=== PATIENT | male | born 1955 | race Caucasian/White ===

== ENCOUNTER → 2018-07-20 08:47 | Outpatient (POV) | payer OTHER, SELFPAY | PROVIDERS: Visit Provider Dermatology | DX: Z00.00 Encounter for general adult medical examination without abnormal findings (principal) ==

== ENCOUNTER → 2019-05-04 10:28 | Outpatient (CLI) | payer OTHER, SELFPAY ==
--- NOTE | 2019-05-04 10:34 | XR_ITS ---
PROCEDURE: XR CHEST 2V CLINICAL HISTORY: BRONCHITIS COMPARISON: No exams were available for comparison FINDINGS: The cardiomediastinal silhouette and pulmonary vascularity are within normal limits. The lungs are clear without infiltrates, suspicious nodules, or pleural effusions. No acute bony abnormalities. IMPRESSION: No acute findings. Dictated by: Garrett Haines MD 05/04/2019 10:56 Signed by: <Electronically signed by Garrett Haines MD in [place]> 05/04/2019 10:56
== END ==
PROVIDERS: PCP Family Medicine; Visit Provider Family Medicine
DX: J40 Bronchitis, not specified as acute or chronic (principal)
CPT/HCPCS: 71046

== ENCOUNTER → 2019-07-05 08:21 | Outpatient (CLI) | payer OTHER, SELFPAY ==
--- NOTE | 2019-07-05 08:39 | CT_ITS ---
PROCEDURE: CT CHEST W CON CLINCAL INDICATION: SIMPLE CHRONIC BRONCHITIS Persistent cough and congestion, possible dust exposure COMPARISON: ABDPELW CT ABD PELVIS W/ CONTRAST from 01/19/2015 ABDPELW/O CT ABD PELVIS W/O CONTRAST from 04/19/2015 TECHNIQUE: IV Contrast: 75ml Optiray 350 Axial images obtained with sagittal and coronal reformats. All CT scans at the facility use one or more dose reduction, viz: automated exposure control, ma/kV adjustment per patient size (including targeted exams where dose is matched to indication, i.e. head), or iterative reconstruction technique. 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 No evidence of aortic aneurysm or dissection or central pulmonary embolus. Coronary artery calcifications are present. No mediastinal or hilar mass or adenopathy. There are atelectatic changes in the right lower lobe posteriorly and in the right lower lobe superiorly. Right hemidiaphragm is elevated. No central obstructing lesions are evident. No suspicious pulmonary nodules. No acute bony findings. IMPRESSION: Elevated right hemidiaphragm with right lower lobe atelectatic changes. Diaphragmatic paralysis or paresis could cause this finding and may be better evaluated for with fluoroscopic sniff test. Otherwise negative Dictated by: Garrett Haines MD 07/06/2019 08:48 Electronically signed by Garrett Haines MD in [place] 07/06/2019 08:48
[2019-07-05 08:47] LABS: Blood Urea Nitrogen 15 mg/dL (7-18); Creatinine,Serum 1.03 mg/dL (0.70-1.30); Estimated Glomerular Filt Rate 73 ml/min (>60); GFR (African American) 89 ML/MIN (>60)
== END ==
PROVIDERS: Visit Provider Family Medicine
DX: J41.0 Simple chronic bronchitis (principal)
CPT/HCPCS: 36415; 71260; 82565; 84520; Q9967

== ENCOUNTER → 2020-04-17 08:41 | Outpatient (CLI) | payer OTHER, SELFPAY ==
--- NOTE | 2020-04-17 08:49 | XR_ITS ---
PROCEDURE: XR CHEST 2V CLINICAL HISTORY: ATELECTASIS OF RT LUNG COMPARISON: CR CXR CHEST(2 VIEWS-NOT PORTABLE) from 01/13/2015 CR CXR CHEST(2 VIEWS-NOT PORTABLE) from 03/06/2016 DX XR CHEST 2V from 05/04/[address] CHEST W CON from 07/05/2019 FINDINGS: The cardiomediastinal silhouette and pulmonary vascularity are within normal limits. Atelectatic and/or fibrotic changes are present in the right lower lobe slightly increased compared to the previous exam of 05/04/2019. Left lung is clear. No acute bony findings. No acute bony abnormalities. IMPRESSION: Slight increase in atelectasis and/or fibrotic change in the right lung base Dictated b Garrett Haines MD 04/17/2020 15:58 Garrett Haines MD in [place] 04/17/2020 15:58
--- NOTE | 2020-04-17 08:49 | XR_ITS ---
PROCEDURE: XR SINUS MIN 3V CLINICAL INDICATION: LARYNGOSPASMS COMPARISON: No exams were available for comparison FINDINGS: There is moderate mucosal thickening of the maxillary sinuses bilaterally right greater than left with suggestion of an air-fluid level in the right maxillary sinus. The frontal and ethmoid and sphenoid sinuses are unremarkable. IMPRESSION: Bilateral maxillary sinus disease with air-fluid level on the right suggesting acute sinusitis Dictated b Garrett Haines MD 04/17/2020 15:59 Garrett Haines MD in [place] 04/17/2020 15:59
== END ==
PROVIDERS: PCP Family Medicine; Visit Provider Family Medicine
DX: J38.5 Laryngeal spasm (principal); J98.11 Atelectasis
CPT/HCPCS: 70220; 71046

== ENCOUNTER → 2020-04-19 08:39 | Outpatient (CLI) | payer OTHER, SELFPAY | PROVIDERS: PCP Family Medicine; Visit Provider Family Medicine | DX: Z20.828 Contact with and (suspected) exposure to other viral communicable diseases (principal) | CPT/HCPCS: U0003 ==

== ENCOUNTER → 2020-06-28 15:27 | Outpatient (CLI) | payer OTHER, SELFPAY ==
[2020-06-29 13:57] LABS: Covid-19 Nasal PCR Sendout Lex Not Detected
== END ==
PROVIDERS: PCP Family Medicine; Visit Provider Nurse Practitioner
DX: Z03.818 Encounter for observation for suspected exposure to other biological agents ruled out (principal)
CPT/HCPCS: U0004

== ENCOUNTER 2020-09-19 10:56 | Emergency (ER) | payer OTHER, SELFPAY ==
[2020-09-19 10:58] VITALS: BP 185/95; PULSE 75; RESP 16; TEMP 36.8; O2SAT 94; BMI 38.9
--- NOTE | 2020-09-19 11:21 | HMH.EDUTC ---
[facility] Disposition Clinical Impression: Viral syndrome, Exposure to COVID-19 virus Disposition: Home, Self-Care Condition on Discharge: Good Instructions: DI for COVID-19 (Suspected or Confirmed ), Preventing the Spread of Coronavirus Discharge Instructions Additional Instructions: Drink plenty of fluids. Take tylenol for pain or fever. Return if you begin to have difficulty breathing. Follow up with your regular doctor. GO TO THE ER FOR ANY WORSENING SYMPTOMS Referrals: Fani Hirsch MD [Primary Care Provider] - Time of Disposition: 11:27 Medical Decision Making - Medical Records Medical records reviewed: No: I reviewed the patient's medical records. - Tito Inquiry Pt receiving controlled substance: No Vital Signs: 09/19/20 10:58 09/19/20 11:35 Temperature 98.3 F 98.3 F Temperature Source Oral Oral Pulse Rate 75 Pulse Rate [Right] 75 Respiratory Rate 16 16 Blood Pressure 185/95 H Blood Pressure [Right Arm] 185/95 H Blood Pressure Mean [Right Arm] 125 02 Sat by Pulse Oximetry 94 L [facility] HPI - General Stated complaint: Cough;headache;weakness wants COVID test Time Seen by Provider: 09/19/20 11:21 Mode of Arrival: Ambulatory Source of Information: Patient Limitations: No Limitations Description of Symptoms (Recalled from Triage Doc. by RN): pt c/o HINDS x 3 days. son has tested positive for covid. pt requesting covid test HEENT Symptoms (Recalled from RN notes): No Resp Symptoms (Recalled from RN notes): No Skin Symptoms (Recalled from RN notes): No MS Symptoms (Recalled from RN notes): No Functional Status (Recalled from RN notes): wnl - History of Present Illness Provider Complaint: He states that his son currently has covid-19. His son lives with him. He states that for the past 2 days he has had a head ache, mild cough, and mild sore throat. He denies any shortness of breath. - Related Data Allergies Allergy/AdvReac Type Severity Reaction Status Date / Time No Known Allergies Allergy Unverified 01/14/18 11:21 - Worker's Comp Is this a Worker's Comp case?: No Is this an H Worker's Comp?: No Is this a [place] Worker's Comp?: No [facility] History - Hepatitis A Screen Drug use history?: No High risk sexual behaviors?: No History of sexually transmitted infection?: No Currently employed?: No Childcare worker?: No Do you have indoor plumbing?: Yes Do you have electricity?: Yes Attestation statement:: This patient has been screened for Hepatitis A risk factors. I have reviewed the patient's past medical history: Yes Other Surgeries: Yes: Other - Social History Smoking Status: Former smoker Tobacco Type: cigars Alcohol Intake: current Alcohol Intake Frequency:: a few times a week Substance Use Type: denies use Family Hx:: Diabetes, Coronary Artery Disease ROS Obtained: Yes All systems reviewed & no additional complaints - Constitutional Constitutional: Reports system reviewed and no additional complaints, except as docu - Eyes Eyes: Reports system reviewed and no additional complaints, except as docu - ENT Ears, Nose, Mouth, and Throat: Reports system reviewed and no additional complaints, except as docu - Cardiovascular Cardiovascular: Reports system reviewed and no additional complaints, except as docu - Respiratory Respiratory: Reports system reviewed and no additional complaints, except as docu - Gastrointestinal Gastrointestingal: Reports: system reviewed and no additional complaints, except as docu Physical Exam - General General appearance: alert, in no apparent distress - Head Head exam: atraumatic, normocephalic, normal inspection - Eye Eye exam: Present: normal appearance, PERRL, EOMI - ENT ENT exam: Present: normal exam, normal oropharynx, mucous membranes moist, TM's normal bilaterally, normal external ear exam - Neck Neck exam: Present: normal inspection, full ROM, trachea midline. Absent: meningismus, lymphadenopathy
[2020-09-19 11:35] VITALS: BP 185/95; PULSE 75; RESP 16; TEMP 36.8; O2SAT 94
--- NOTE | 2020-09-19 16:30 | PC.NURSE ---
Attempted to reach pt at both phone numbers listed. left voicemail to call back to [facility]
--- NOTE | 2020-09-19 16:51 | PC.NURSE ---
PATIENT NOTIFIED OF POSITIVE COVID RESULTS
== END 2020-09-19 11:36 | disposition home or self-care (01) ==
PROVIDERS: Emergency Provider Nurse Practitioner Family; PCP Family Medicine
DX: U07.1 COVID-19 (principal); Z87.891 Personal history of nicotine dependence
CPT/HCPCS: 99202; G0463; U0003

== ENCOUNTER → 2021-03-17 13:53 | Outpatient (CLI) | payer OTHER, SELFPAY ==
[2021-03-17 14:20] LABS: Basophils # 0.1 K/mm3 (0-0.2); Basophils % 0.6 % (0.1-2.0); Eosinophils # 0.1 K/mm3 (0.0-0.4); Eosinophils % 1.4 % (0.1-12.0); Hematocrit 42.7 % (42.0-52.0); Hemoglobin 14.8 g/dL (14.1-18.0); Lymphocytes # 1.5 K/mm3 (0.7-4.5); Lymphocytes % 14.4 % (10-50); Mean Corpuscular HGB Conc 34.6 g/dL (31.8-35.4); Mean Corpuscular Hemoglobin 30.5 pg (27.0-31.2); Mean Corpuscular Volume 88.3 fl (80-94); Mean Platelet Volume 7.4 fl (7.4-10.4); Monocytes # 0.5 K/mm3 (0.1-1.0); Monocytes % 4.6 % (1.7-9.3); Neutrophils # 8.2 K/mm3 (1.8-7.8); Platelet Count 302 K/mm3 (142-424); Red Blood Count 4.84 M/mm3 (4.60-6.20); Red Cell Distribution Width 12.9 % (11.5-17.5); White Blood Count 10.3 K/mm3 (4.8-10.8)
[2021-03-17 14:36] LABS: Chloride 103 mmol/L (98-107); Sodium 143 mmol/L (136-145)
[2021-03-17 14:38] LABS: Blood Urea Nitrogen 13 mg/dl (9-20); Estimated Glomerular Filt Rate 75 ml/min (>60); GFR (African American) 91 ML/MIN (>60)
[2021-03-17 14:39] LABS: Alanine Aminotransferase 61 U/L (12-78); Albumin Level 4.3 g/dl (3.5-5.0); Albumin/Globulin Ratio 1.4 (1.1-1.8); Alkaline Phosphatase 98 U/L (38-126); Aspartate Amino Transferase 45 U/L (17-59); Bilirubin,Total 0.9 mg/dl (0.2-1.3); Carbon Dioxide 30 mmol/L (22.0-30.0); Globulin 3.1 g/dL (1.3-3.2); Glucose 114 mg/dl (74-100); Total Protein,Serum 7.4 g/dl (6.3-8.2)
[2021-03-20 00:10] LABS: Rocky Mtn Spotted Fever, IgM 0.43 index (0.00-0.89)
[2021-03-20 19:10] LABS: RMSF, IgG, EIA Positive (Negative)
[2021-03-26 17:13] LABS: IgG P18 Ab. Absent (.); IgG P23 Ab. Present (.); IgG P28 Ab. Absent (.); IgG P30 Ab. Absent (.); IgG P39 Ab. Absent (.); IgG P41 Ab. Present (.); IgG P45 Ab. Absent (.); IgG P58 Ab. Absent (.); IgG P66 Ab. Absent (.); IgG P93 Ab. Absent (.); IgM P23 Ab. Present (.); IgM P39 Ab. Present (.); IgM P41 Ab. Present (.); Lyme IgG WB Interp. Negative (.); Lyme IgM WB Interp. Positive (.)
== END ==
PROVIDERS: Visit Provider Family Medicine
DX: A69.20 Lyme disease, unspecified (principal)
CPT/HCPCS: 36415; 80053; 85025; 86609; 86617; 86618

== ENCOUNTER → 2021-05-07 10:53 | Outpatient (POV) | payer OTHER, SELFPAY | PROVIDERS: Visit Provider Dermatology | DX: Z00.00 Encounter for general adult medical examination without abnormal findings (principal) ==

== ENCOUNTER → 2022-02-25 10:50 | Outpatient (POV) | payer OTHER, SELFPAY | PROVIDERS: Visit Provider Dermatology | DX: Z00.00 Encounter for general adult medical examination without abnormal findings (principal) ==

== ENCOUNTER → 2022-03-20 09:07 | Outpatient (CLI) | payer OTHER, SELFPAY ==
--- NOTE | 2022-03-20 09:16 | XR_ITS ---
FINAL REPORT CLINICAL HISTORY: kidney stone FINDINGS: There is a nonobstructive bowel gas pattern. There are no abnormally dilated loops of small bowel. Bowel gas and stool obscures the renal outlines. No definite renal stone is identified. There are plea bullous in the pelvis. IMPRESSION: No definite renal stones. Reviewed, Interpreted and Dictated by Jack Palencia III, MD Transcribed by Bahman Lomeli Authenticated and [facility]
== END ==
PROVIDERS: PCP Family Medicine; Visit Provider Urology
DX: N20.0 Calculus of kidney (principal)
CPT/HCPCS: 74018

== ENCOUNTER → 2022-03-20 11:08 | Outpatient (CLI) | payer OTHER, SELFPAY ==
[2022-03-20 12:22] LABS: Prostate Specific Ag Screen 2.6 ng/ml (0.0-4.0)
== END ==
PROVIDERS: PCP Family Medicine; Visit Provider Urology
DX: Z12.5 Encounter for screening for malignant neoplasm of prostate (principal)
CPT/HCPCS: 36415; G0103

== ENCOUNTER → 2022-03-31 12:56 | Outpatient (CLI) | payer OTHER, SELFPAY ==
[2022-03-31 13:24] LABS: Basophils # 0.1 K/mm3 (0-0.2); Basophils % 0.4 % (0.1-2.0); Eosinophils # 0.1 K/mm3 (0.0-0.4); Eosinophils % 0.9 % (0.1-12.0); Hematocrit 41.1 % (42.0-52.0); Lymphocytes # 1.9 K/mm3 (0.7-4.5); Lymphocytes % 13.6 % (10-50); Mean Corpuscular HGB Conc 33.9 g/dL (31.8-35.4); Mean Corpuscular Hemoglobin 30.2 pg (27.0-31.2); Mean Corpuscular Volume 88.9 fl (80-94); Monocytes # 0.9 K/mm3 (0.1-1.0); Monocytes % 6.5 % (1.7-9.3); Neutrophils # 11.2 K/mm3 (1.8-7.8); Neutrophils % 78.6 % (37.0-80.0); Platelet Count 350 K/mm3 (142-424); Red Blood Count 4.62 M/mm3 (4.60-6.20); Red Cell Distribution Width 11.9 % (11.5-17.5); White Blood Count 14.3 K/mm3 (4.8-10.8)
[2022-03-31 13:31] LABS: Strep Scrn Group A (Rapid) Negative (Negative)
== END ==
PROVIDERS: PCP Family Medicine; Visit Provider Nurse Practitioner Family
DX: Z20.822 Contact with and (suspected) exposure to COVID-19 (principal)
CPT/HCPCS: 36415; 85025; 87275; 87276; 87430; C9803; U0003; U0005

== ENCOUNTER → 2022-04-01 13:01 | Outpatient (CLI) | payer OTHER, SELFPAY ==
--- NOTE | 2022-04-01 13:05 | XR_ITS ---
FINAL REPORT CLINICAL HISTORY: RESPIRATORY INFECTION COMPARISON: 04/17/2020 FINDINGS: TWO-VIEW CHEST Two views of the chest were obtained. The heart size and pulmonary vascularity are within normal limits. The mediastinum is normal. There are worsening bibasilar opacities favoring atelectasis over pneumonia. There is no pneumothorax. The bony thorax is intact. IMPRESSION: Worsening bibasilar opacities favoring atelectasis over pneumonia. Reviewed, Interpreted and Dictated by Jack Palencia III, MD Transcribed by Anupama Anaya Authenticated and [facility]
== END ==
PROVIDERS: PCP Family Medicine; Visit Provider Family Medicine
DX: J98.8 Other specified respiratory disorders (principal)
CPT/HCPCS: 71046

== ENCOUNTER → 2022-04-10 11:17 | Outpatient (CLI) | payer OTHER, SELFPAY | PROVIDERS: PCP Family Medicine; Visit Provider Internal Medicine Pulmonary Disease | DX: R06.09 Other forms of dyspnea (principal); J45.901 Unspecified asthma with (acute) exacerbation | CPT/HCPCS: 94060 ==

== ENCOUNTER → 2022-05-15 14:53 | Outpatient (CLI) | payer MEDICARE, OTHER, SELFPAY | PROVIDERS: PCP Family Medicine; Visit Provider Internal Medicine Pulmonary Disease | DX: R06.00 Dyspnea, unspecified (principal) | CPT/HCPCS: 94070; 95070; J7674 ==

== ENCOUNTER → 2022-06-23 12:20 | Outpatient (CLI) | payer MEDICARE, OTHER, SELFPAY ==
[2022-07-02 18:09] LABS: D001-IgE D pteronyssinus <0.10 kU/L (Class 0); D002-IgE D farinae <0.10 kU/L (Class 0); E005-IgE Dog Dander 0.12 kU/L (Class 0/I); E072-IgE Mouse Urine <0.10 kU/L (Class 0); G002-IgE Bermuda Grass <0.10 kU/L (Class 0); G006-IgE Timothy Grass <0.10 kU/L (Class 0); Immunoglobulin E, Total 108 IU/mL (6-495); M001-IgE Penicillium chrysogen <0.10 kU/L (Class 0); M002-IgE Cladosporium herbarum <0.10 kU/L (Class 0); M003-IgE Aspergillus fumigatus <0.10 kU/L (Class 0); M006-IgE Alternaria alternata <0.10 kU/L (Class 0); T001-IgE Maple/Box Elder <0.10 kU/L (Class 0); T003-IgE Common Silver Birch <0.10 kU/L (Class 0); T006-IgE Cedar, Mountain <0.10 kU/L (Class 0); T007-IgE Oak, White <0.10 kU/L (Class 0); T008-IgE Elm, American <0.10 kU/L (Class 0); T010-IgE Walnut <0.10 kU/L (Class 0); T011-IgE Maple Leaf Sycamore <0.10 kU/L (Class 0); T014-IgE Cottonwood <0.10 kU/L (Class 0); T015-IgE Ash, White <0.10 kU/L (Class 0); T022-IgE Pecan, Hickory <0.10 kU/L (Class 0); T070-IgE White Mulberry <0.10 kU/L (Class 0); W001-IgE Ragweed, Short <0.10 kU/L (Class 0); W011-IgE Thistle, Russian <0.10 kU/L (Class 0); W014-IgE Pigweed, Common <0.10 kU/L (Class 0); W018-IgE Sheep Sorrel <0.10 kU/L (Class 0)
== END ==
PROVIDERS: PCP Family Medicine; Visit Provider Otolaryngology
DX: J38.3 Other diseases of vocal cords (principal); J38.5 Laryngeal spasm; J34.2 Deviated nasal septum; J45.40 Moderate persistent asthma, uncomplicated; R06.09 Other forms of dyspnea
CPT/HCPCS: 36415; 82785; 86003

== ENCOUNTER → 2022-07-01 08:22 | Outpatient (POV) | payer MEDICARE, OTHER, SELFPAY | PROVIDERS: Visit Provider Dermatology | DX: Z00.00 Encounter for general adult medical examination without abnormal findings (principal) ==

== ENCOUNTER → 2023-07-14 09:21 | Outpatient (POV) | payer MEDICARE, OTHER, SELFPAY | PROVIDERS: Visit Provider Dermatology | DX: Z00.00 Encounter for general adult medical examination without abnormal findings (principal) ==

== ENCOUNTER 2023-09-14 08:41 | Emergency (ER) | payer MEDICARE, OTHER, SELFPAY ==
[2023-09-14 08:50] VITALS: BP 134/75; PULSE 81; RESP 20; TEMP 37; O2SAT 97; BMI 30.2
--- NOTE | 2023-09-14 09:06 | EXP.UTC ---
Discharge Plan Disposition Patient Disposition: Home, Self-Care Condition: Good Prescriptions Prescriptions: New benzonatate 100 mg capsule 100 mg PO TID PRN (Reason: cough) Qty: 30 0RF amoxicillin-pot clavulanate 875-125 mg Tablet 1 tab PO Q12H Qty: 20 0RF guaifenesin [Mucinex] 600 mg tablet extended release 12hr 1,200 mg PO BID PRN (Reason: cough) Qty: 20 0RF Referrals Follow up/Referrals: Fani Hirsch MD [Primary Care Provider] - See instructions Activity Restrictions/Add. Instructions Additional Instructions/Restrictions: *Monitor Temp, Over the counter Motrin or Tylenol as directed/as needed Tylenol every 4 hours and Motrin every 6 hours (as long as your family doctor has told you that you can take it) for fever or pain. and straight to ER if unable to lower temp less than 101.0 after medication given *Warm salt water gargles may help to soothe the throat *Throat Lozenges? *Warm fluids like tea with honey may help to soothe the throat? *Sleep elevated *Humidifier/Vaporizer Follow up IMMEDIATELY for new or worsening symptoms or no Noticeable improvement over the next 48-72 hours. 911 for difficulty breathing or swallowing Clinical Impressions Clinical Impression: Bronchitis Sinusitis Qualifiers: Sinusitis location: unspecified location Chronicity: unspecified Qualified Code(s): J32.9 - Chronic sinusitis, unspecified Instructions Patient Instructions: Sinusitis, Acute Bronchitis, DI for Sinusitis Discharge ED Provider: Khloe Kenney [facility] General Stated complaint: cough, congestion, loss of appetite, runny nose Mode of Arrival: Ambulatory Source of Information: Patient Limitations: No Limitations Time Seen by Provider: 09/14/23 09:06 Description of Symptoms (Recalled from Triage Doc. by RN): PATIENT C/O CHEST AND HEAD CONGESTION, BODY ACHES, FEELING TIRED, COUGH, AND DECREASED APPETITE THAT STARTED 09/05/23 HEENT Symptoms (Recalled from RN notes): Yes Resp Symptoms (Recalled from RN notes): Yes Skin Symptoms (Recalled from RN notes): No MS Symptoms (Recalled from RN notes): No Functional Status (Recalled from RN notes): WNL History of Present Illness Provider Complaint: Patient states that he has been sick a couple weeks with sinus congestion and pressure, drainage in the back of his throat, feeling like it is trying to move into his chest, cough, body aches and feeling tired and achy all over States that today he wasnt feeling any better so he came in to get checked Related Data Previous Rx's Medication Instructions Recorded amoxicillin 875 mg-potassium 1 tab PO Q12H #20 tabs 09/14/23 clavulanate 125 mg tablet benzonatate 100 mg capsule 100 mg PO TID PRN cough #30 caps 09/14/23 guaifenesin 600 mg tablet, 1,200 mg PO BID PRN cough #20 tabs 09/14/23 extended release 12 hr (Mucinex) Allergies Allergy/AdvReac Type Severity Reaction Status Date / Time No Known Allergies Allergy Unverified 06/23/22 11:43 Worker's Comp Is this a Worker's Comp case?: No [facility] Disclaimer: The information contained in this section may have been updated after the patient was seen, as this information can be updated by other users. Medical History (Updated 09/14/23 @ 09:45 by Khloe Kenney APRN) Abnormal computerized axial tomography of chest Collapse of right lung Deviated nasal septum Dyspnea on exertion Elevated hemidiaphragm Exposure to COVID-19 virus Family history of asthma Focal bronchiectasis Laryngospasms Moderate persistent asthma Seasonal allergies Vocal cord dysfunction Surgical History (Updated 06/23/22 @ 11:44 by CEHNTE Lopez) H/O vasectomy History of colonoscopy Family History Other Coronary artery disease Diabetes Social History Smoking Status: Former smoker tobacco type: cigars alcohol intake: current substance use type: denies use current occupational status: employed Travel in the last 8 weeks: Outside the continental [facility] ROS Obtained: Yes All systems reviewed & no additional complaints except as documented and Yes Systems reviewed as appropriate & no additional complaints except as documented Constitutional Constitutional: Reports system reviewed and no additional complaints, except as documented, Reports as per HPI, Reports body ache and Reports headache(s) ENT Ears, Nose, Mouth, and Throat: Reports system reviewed and no additional complaints, except as documented, Reports as per HPI, Reports headache(s), Reports sinus pain and Reports sinus pressure Cardiovascular Cardiovascular: Reports system reviewed and no additional complaints, except as documented and Reports as per HPI Respiratory Respiratory: Reports system reviewed and no additional complaints, except as documented, Reports as per HPI, Reports chest congestion and Reports cough Gastrointestinal Gastrointestingal: Reports system reviewed and no additional complaints, except as documented and as per HPI Neurologic Neurologic: Reports headache(s) Physical Exam General General appearance: alert and in no apparent distress ENT ENT exam: Present mucous membranes moist Expanded ENT Exam Nose exam: Present sinus tenderness Throat exam: Present other (Pharyngeal erythema noted with PND) Chest Chest inspection: Present normal inspection and symmetric chest wall rise Respiratory Respiratory exam: Present normal lung sounds bilaterally; Absent respiratory distress or wheezes Cardiovascular Cardiovascular exam: Present regular rate, normal rhythm and normal heart sounds Abdominal Exam Abdominal exam: Present soft and normal bowel sounds; Absent distention or tenderness Neurological Exam Neurological exam: Present alert, oriented X3 and normal gait Medical Decision Making Tito Inquiry Pt receiving controlled substance: No Tito was queried for this patient: No Vital Signs: 09/14/23 08:50 Temperature 98.6 F Temperature Source Oral Pulse Rate [Right Brachial] 81 Respiratory Rate 20 Blood Pressure [Right Arm] 134/75 Blood Pressure Mean [Right Arm] 94 Blood Pressure Source [Right Arm] Automatic Cuff Blood Pressure Position [Right Arm] Sitting 02 Sat by Pulse Oximetry 97 Oxygen Delivery Method Room Air Lab Data Lab results reviewed: Yes I reviewed the patient's lab results.
[2023-09-14 09:29] LABS: UTC Influenza A Antigen Negative (Negative)
[2023-09-14 09:30] LABS: UTC Influenza B Antigen Negative (Negative)
[2023-09-14 09:49] VITALS: BP 134/75; PULSE 81; RESP 20; TEMP 37; O2SAT 97
== END 2023-09-14 09:52 | disposition home or self-care (01) ==
PROVIDERS: Emergency Provider Nurse Practitioner; PCP Family Medicine
DX: J20.9 Acute bronchitis, unspecified (principal); J01.90 Acute sinusitis, unspecified; R51.9 Headache, unspecified; R05.9 Cough, unspecified; R09.81 Nasal congestion; R09.82 Postnasal drip; R53.83 Other fatigue; M79.18 Myalgia, other site; J45.909 Unspecified asthma, uncomplicated; Z87.891 Personal history of nicotine dependence
CPT/HCPCS: 87804; 99212; 99214; G0463